=== PATIENT | male | born 1955 | race Caucasian/White ===

== ENCOUNTER 2019-12-20 06:37 | Inpatient (IN) | payer OTHER ==
[~2019-12-20] VITALS: Ht 162.6 cm; Wt 80.7 kg
[~2019-12-20 06:37] MED LIST: ASPI-231 PO; GLYB5TAB8 PO; HYDR-531 PO; LEVEMIR SC; METF-370 PO; OMEP20TA PO; SIMV-8 PO
[2019-12-20] MEDS ORDERED: IODIXANOL 320MG/ML 100ML BTL IV ONE ×2 (07:39→08:12)
[2019-12-20] MEDS ORDERED: LIDOCAINE 2%HCL (LOCAL ANESTH.) INJ 20ML MDV ONE (07:39)
[2019-12-20] MEDS ORDERED: ANGIOMAX 250 MG VIAL IV ONE (07:52)
[2019-12-20] MEDS ORDERED: VERAPAMIL 2.5MG/ML INJ 2ML VIAL IV ONE (07:52)
[2019-12-20] MEDS ORDERED: HEPARIN SODIUM (PORCINE) 5000 UNITS/ML 1ML VIAL ONE (07:52)
[2019-12-20] MEDS ORDERED: fentaNYL CITRATE 100 MCG/2 ML VL ONE (07:52)
[2019-12-20] MEDS ORDERED: SODIUM CHL 0.9% 50 ML ONE (07:54)
[2019-12-20] MEDS ORDERED: MIDAZOLAM HCL 1MG/1ML-2 ML VIAL ONE (07:54)
[2019-12-20] MEDS ORDERED: ASPirin 325 MG TAB ONE (08:49)
[2019-12-20] MEDS ORDERED: CLOPIDOGREL 300 MG TAB ONE (08:49)
[2019-12-20] MEDS ORDERED: ONDANSETRON HCL 4 MG/2 ML VIAL IV PRN (09:15)
[2019-12-20] MEDS ORDERED: ACETAMINOPHEN 500 MG TAB PO PRN (09:15)
[2019-12-20] MEDS ORDERED: MORPHINE SULF INJ 2 MG/ML SYRINGE 1ML IV PRN (09:15)
[2019-12-20] MEDS ORDERED: NITROGLYCERIN 0.4 MG SL TAB SL PRN (09:15)
[2019-12-20] MEDS ORDERED: HYDROcodone-ACET 5/325MG TAB PO PRN (09:15)
[2019-12-20] MEDS ORDERED: DEXTROSE (50%) 50ML SYRG IV PRN (10:30)
[2019-12-20 11:30] VITALS: BP 125/69
[2019-12-20] MEDS: ACCU-CHEK COMFORT CURVE STRIP VI SCH ×3 (11:30→21:12)
[2019-12-20] MEDS: InsuLIN REG 1unit/0.01ml Soln (100units/ml) SC SCH ×3 (11:30→21:12)
--- NOTE | 2019-12-20 11:30 | NUR ---
Telemetry admit from [employer] AB MARCANO admitted to Telemetry unit after verbal report received from JAE Dumont. Patient oriented to Nilsa Gibbons, primary RN, unit, room, bed, and unit policies regarding patient care and visiting hours. Patient now on continuous telemetry monitoring, tele box #29 and telemetry reading on arrival to unit is sinus rhythm @ 73 bpm. Patient placed on bedside oxygen, weighed by bedscale and encouraged to call if they need something. IV to right upper arm, 20 guage, patent and saline locked. Left radial Vasc Band in place, no drainage noted, distal pulse strong and normal. All questions and concerns addressed, patient verbalized understanding. Bed locked, in lowest position, call light within reach, will continue to monitor Q 1 hour and PRN.
[2019-12-20 13:00] VITALS: BP 125/69
[2019-12-20 16:54] VITALS: BP 120/67
--- NOTE | 2019-12-20 19:17 | NUR ---
Care endorsed to JAE Odom, night nurse.
[2019-12-20 21:20] VITALS: BP 122/65
[2019-12-21 05:00] VITALS: BP 114/67
[2019-12-21] MEDS: ACCU-CHEK COMFORT CURVE STRIP VI SCH ×2 (05:33→11:30)
[2019-12-21] MEDS: InsuLIN REG 1unit/0.01ml Soln (100units/ml) SC SCH (05:34)
[2019-12-21 07:08] LABS: Basophils # (auto) 0.1 10 ^3/uL (0-0.2); Basophils % (auto) 0.5 % (0.0-2.0); Eosinophils # (auto) 0.1 10 ^3/uL (0-0.8); Eosinophils % (auto) 1.4 % (0.0-7.0); Hematocrit 41.6 % (41.0-53.0); Hemoglobin 14.5 g/dL (13.5-17.5); Lymphocytes # (auto) 2.5 10 ^3/uL (0.4-5.4); Lymphocytes % (auto) 24.4 % (10.0-50.0); Mean Corpuscular Hemoglobin 31.4 pg (28.0-32.0); Mean Corpuscular Hgb Conc. 34.7 g/dL (32.0-36.0); Mean Corpuscular Volume 90.4 fL (80.0-100.0); Monocytes # (auto) 0.9 10 ^3/uL (0-1.3); Monocytes % (auto) 9.2 % (0.0-12.0); Neutrophils # (auto) 6.5 10 ^3/uL (1.6-8.6); Neutrophils % (auto) 64.5 % (37.0-80.0); Nucleated Red Blood Cells % 0.1 %; Platelet Count (auto) 330 10^3/uL (140-450); Red Blood Cells 4.61 10^6/uL (4.5-5.90); Red Cell Distribution Width 13.6 % (11.8-14.3); White Blood Cell 10.1 10^3/uL (4.4-10.8)
--- NOTE | 2019-12-21 08:00 | NUR ---
Opening Shift Note Assumed care of patient, awake, alert and oriented X4. No S/S of distress/SOB or pain. Telemetry monitoring, tele box #29 and telemetry reading is sinus rhythm @ 72 bpm. IV to right hand, 20 gauge, patent and saline locked. Left radial dressing in place, no drainage noted, distal pulse strong and normal. All questions and concerns addressed, patient verbalized understanding. Bed locked, in lowest position, call light within reach, will continue to monitor Q 1 hour and PRN. Instructed on POC and to call for assist PRN, will continue to monitor for changes Q1hr and PRN.
[2019-12-21 09:00] VITALS: BP 112/69
[2019-12-21] MEDS ORDERED: ASPirin 81 mg TAB PO SCH (10:00)
[2019-12-21] MEDS ORDERED: CLOPIDOGREL BISULFATE 75 MG TAB PO SCH (10:00)
--- NOTE | 2019-12-21 13:05 | NUR ---
ROUNDS Dr Messer at bedside for rounds, new orders received and followed through. Patient updated on plan of care, verbalized understanding.
[2019-12-21 13:21] VITALS: BP 114/71
[2019-12-21 15:38] VITALS: BP 114/71
--- NOTE | 2019-12-21 16:15 | NUR ---
Discharge instructions given as ordered. Encourage to follow up with PMD as instructed. All questions and concerns addressed. Patient verbalized understanding. Medication reconciliation form completed and copy given to patient. Telemetry unit returned to ICU. Patient taken to vehicle via wheelchair with all personal belongings, accompanied by staff and family member. No distress noted at time of departure.
== END 2019-12-21 16:30 | disposition home or self-care (01) | DRG 247 ==
LOC: CATH 06:37 → TELE-CENTR 11:05
PROVIDERS: ADMIT Internal Medicine; ATTEND Internal Medicine
PROC: 027135Z Dilation of Coronary Artery, Two Arteries with Two Drug-eluting Intraluminal Devices, Percutaneous Approach (ICD-10-PCS; principal; 2019-12-20)
PROC: B211YZZ Fluoroscopy of Multiple Coronary Arteries using Other Contrast (ICD-10-PCS; 2019-12-20)
DX: I25.10 Atherosclerotic heart disease of native coronary artery without angina pectoris (principal); E78.5 Hyperlipidemia, unspecified; Z20.828 Contact with and (suspected) exposure to other viral communicable diseases
CPT/HCPCS: 36415; 82962; 85025; 92928; 93005; 93454; 99152; 99153; C1874; C1887; G0378; J1815; J2250; Q9967

== ENCOUNTER 2020-01-16 06:21 | Day surgery (SDC) | payer OTHER ==
[~2020-01-16] VITALS: Ht 162.6 cm; Wt 79.4 kg
[~2020-01-16 06:21] MED LIST changes: +CLOP75TA28 PO
[2020-01-16] MEDS ORDERED: LIDOCAINE 2%HCL (LOCAL ANESTH.) INJ 20ML MDV ONE (07:38)
[2020-01-16] MEDS ORDERED: IODIXANOL 320MG/ML 100ML BTL IV ONE (07:38)
[2020-01-16] MEDS ORDERED: ANGIOMAX 250 MG VIAL IV ONE (08:19)
[2020-01-16] MEDS ORDERED: NITROGLYCERIN 5MG/ML 10ML VIAL IV ONE (08:20)
[2020-01-16] MEDS ORDERED: VERAPAMIL 2.5MG/ML INJ 2ML VIAL IV ONE (08:20)
[2020-01-16] MEDS ORDERED: MIDAZOLAM HCL 1MG/1ML-2 ML VIAL ONE (08:20)
[2020-01-16] MEDS ORDERED: SODIUM CHL 0.9% 50 ML ONE ×2 (08:20→08:25)
[2020-01-16] MEDS ORDERED: fentaNYL CITRATE 100 MCG/2 ML VL ONE (08:20)
[2020-01-16] MEDS ORDERED: CLOPIDOGREL 300 MG TAB ONE (08:38)
[2020-01-16] MEDS ORDERED: ASPirin 325 MG TAB ONE (08:39)
[2020-01-16] MEDS ORDERED: ASPirin 81 mg TAB ONE (08:40)
[2020-01-16] MEDS ORDERED: ONDANSETRON HCL 4 MG/2 ML VIAL IV PRN (09:15)
[2020-01-16] MEDS ORDERED: ACETAMINOPHEN 500 MG TAB PO PRN (09:15)
[2020-01-16] MEDS ORDERED: HYDROcodone-ACET 5/325MG TAB PO PRN (09:15)
[2020-01-16] MEDS ORDERED: PANTOPRAZOLE 40 MG/10 ML VIAL INJ IV ONE (10:15)
== END 2020-01-16 13:04 | disposition home or self-care (01) ==
LOC: CATH 06:21
PROVIDERS: ATTEND Internal Medicine
DX: I25.10 Atherosclerotic heart disease of native coronary artery without angina pectoris (principal); E78.5 Hyperlipidemia, unspecified; I25.2 Old myocardial infarction; E11.9 Type 2 diabetes mellitus without complications; Z98.890 Other specified postprocedural states; Z87.891 Personal history of nicotine dependence; Z79.84 Long term (current) use of oral hypoglycemic drugs; Z79.82 Long term (current) use of aspirin; Z79.899 Other long term (current) drug therapy; Z20.828 Contact with and (suspected) exposure to other viral communicable diseases; Z95.1 Presence of aortocoronary bypass graft
CPT/HCPCS: 93454; C1769; C1874; C1887; C1894; C9113; C9600; J0583; J1644; J2250; J3010; J3490; J7030; Q9967; U0003; 99152; 99153

== ENCOUNTER 2020-03-19 15:26 | Emergency (ER) | payer OTHER ==
[~2020-03-19] VITALS: Ht 162.6 cm; Wt 81.6 kg
[2020-03-19] MEDS ORDERED: ASPirin 81 mg TAB PO ONE (17:00)
[2020-03-19 17:40] LABS: Basophils # (auto) 0 10 ^3/uL (0-0.2); Basophils % (auto) 0.5 % (0.0-2.0); Eosinophils # (auto) 0.1 10 ^3/uL (0-0.8); Eosinophils % (auto) 0.8 % (0.0-7.0); Hematocrit 42.9 % (41.0-53.0); Hemoglobin 14.7 g/dL (13.5-17.5); Lymphocytes % (auto) 23.1 % (10.0-50.0); Mean Corpuscular Hemoglobin 31.6 pg (28.0-32.0); Mean Corpuscular Hgb Conc. 34.3 g/dL (32.0-36.0); Mean Corpuscular Volume 92.2 fL (80.0-100.0); Monocytes # (auto) 0.6 10 ^3/uL (0-1.3); Neutrophils # (auto) 5.9 10 ^3/uL (1.6-8.6); Neutrophils % (auto) 68.6 % (37.0-80.0); Platelet Count (auto) 346 10^3/uL (140-450); Red Blood Cells 4.65 10^6/uL (4.5-5.90); Red Cell Distribution Width 13.7 % (11.8-14.3); White Blood Cell 8.6 10^3/uL (4.4-10.8)
[2020-03-19 17:59] LABS: Chloride 105 mmol/L (98-107); Potassium 4.3 mmol/L (3.5-5.1); Sodium 139 mmol/L (136-145)
[2020-03-19 18:06] LABS: INR 0.97 (0.9-1.15); Partial Thromboplastin Time 26.3 sec (23.0-31.2)
[2020-03-19 18:08] LABS: Alanine Aminotransferase 37 U/L (16-61); Albumin 3.8 g/dL (3.4-5.0); Alkaline Phosphatase 89 U/L (45-117); Anion Gap 4 (5-15); Aspartate Aminotransferase 19 U/L (15-37); BUN/Creatinine Ratio 9.9; Bilirubin, Total 0.3 mg/dL (0.2-1.0); Blood Urea Nitrogen 8 mg/dL (7-18); Calcium 8.8 mg/dL (8.5-10.1); Carbon Dioxide 30 mmol/L (21-32); GFR African American 123 mL/min; GFR Non-African American 102 mL/min; Glucose 147 mg/dL (74-106); Total Protein 7.9 g/dL (6.4-8.2)
[2020-03-19 20:13] VITALS: BP 127/74
== END 2020-03-19 20:17 | disposition home or self-care (01) ==
LOC: ER 15:26
DX: R07.89 Other chest pain (principal); E11.9 Type 2 diabetes mellitus without complications; E78.5 Hyperlipidemia, unspecified
CPT/HCPCS: 36415; 71046; 80053; 83735; 83880; 84484; 85025; 85610; 85730; 93005